=== PATIENT | female | born 1960 | race Caucasian/White ===

== ENCOUNTER → 2016-08-01 10:00 | Outpatient (CLI) | payer MEDICAID | END | disposition home or self-care (01) | LOC: D.MRI 10:00 | DX: M75.41 Impingement syndrome of right shoulder (principal) ==

== ENCOUNTER 2016-11-06 05:07 | Day surgery (SDC) | payer MEDICAID ==
[2016-11-03 15:06] LABS: BASOPHILS 0.6 % (0-2); EOSINOPHILS 2.5 % (0-7); HEMATOCRIT 42.1 % (36.0-48.0); HEMOGLOBIN 13.3 g/dL (12-16); IMMATURE GRANULOCYTES 0.1 % (0-5); LYMPHOCYTES 47.9 % (15-50); MCH 28.5 pg (26.0-34.0); MCHC 31.6 g/dL (31.0-37.0); MCV 90.3 fL (80.0-100.0); MEAN PLATELET VOLUME 9.9 fL (7.4-10.4); MONOCYTES 4.6 % (2-11); NEUTROPHILS 44.3 % (40-80); PLATELET COUNT 261 10x3/uL (130-400); RBC 4.66 10x6/uL (4.00-5.40); RDW 14.1 % (11.5-14.5); WBC 7.2 10x3/uL (4.8-10.8)
[2016-11-03 15:25] LABS: CALC OSMOLALITY 283 mosm/kg (275-300); CALCIUM 9.3 mg/dL (8.5-10.1); CHLORIDE - SERUM 104 mmol/L (98-107); CREATININE - SERUM 0.8 mg/dL (0.6-1.3); GLUCOSE 222 mg/dL (74-106); POTASSIUM - SERUM 4.7 mmol/L (3.5-5.1); SODIUM 139 mmol/L (136-145); UREA NITROGEN 10 mg/dL (7-18); eGFR NON AFRICAN AMERICAN 78 mL/min (90-120)
[~2016-11-06] VITALS: Ht 162.6 cm; Wt 117.5 kg
--- NOTE | ~2016-11-06 | OP ---
PATIENT NAME: MUSA CHARLES MEDICAL RECORD: [id number] :56 [facility] ADMISSION DATE: SURGEON: EFRAÍN ROSS MD DATE OF OPERATION: 11/06/2016 DATE OF OPERATION: 11/06/2016 PREOPERATIVE DIAGNOSES: 1. Rotator cuff tear of the right shoulder. 2. Impingement syndrome of the right shoulder. 3. Acromioclavicular arthritis of the right shoulder. POSTOPERATIVE DIAGNOSES: 1. Rotator cuff tear of the right shoulder. 2. Impingement syndrome of the right shoulder. 3. Acromioclavicular arthritis of the right shoulder. 4. Severe biceps tendon tearing. PROCEDURES: 1. Arthroscopic rotator cuff repair. 2. Arthroscopic biceps tenotomy. 3. Arthroscopic subacromial decompression, acromioplasty and bursectomy. 4. Arthroscopic distal clavicle excision. SURGEON: Cody Peacock MD. ANESTHESIA: General. INTRAOPERATIVE COMPLICATIONS: None. SUMMARY OF PATHOLOGIC FINDINGS: Consistent with the preoperative diagnoses, the patient had a full thickness rotator cuff tearing and impingement, acromioclavicular arthritis as well as the biceps tendon tearing noted above. OPERATIVE SUMMARY IN DETAIL: After obtaining the appropriate preoperative orthopedic surgery consent as well as anesthetic consultation, evaluation and clearance, the patient was brought to the operating room and placed on the operating table in supine position. After general laryngeal mask airway was administered, the patient was placed in left lateral decubitus position. All pressure points were well padded to include down leg peroneal pad as well as axillary roll. The patient was held firmly to the vacuum pack suction system. Right upper extremity and shoulder were then prepped and draped in routine sterile fashion. The arm was held in the Ar[employer] traction boom at 30 degrees of forward flexion, 30 degrees of abduction with 10 pounds of traction laterally. Arthroscopy was established in the glenohumeral joint from a posterior portal. Anterior portal was established in the anterior safe interval. Diagnostic arthroscopy revealed the above findings. A transarthroscopic rotator cuff portal was created. The [place] tissue ablation system was used to complete biceps tenotomy, generalized labral debridement was performed. Attention was then turned to the subacromial space. While in the subacromial space, the undersurface of the acromion was denuded of all soft tissue elements. A 5-0 barrel bur was used to perform acromioplasty to perform acromioplasty at the level of acromioclavicular joint and then through a separate arthroscopic anterior portal, distal clavicle was excised for 1 cm under direct fluoroscopic visualization, lateral cortical debridement was followed by an inverted #2 OPERATIVE REPORT [id number] MUSA CHARLES FiberTape passed through the rotator cuff and anchored laterally with a 5.5 SwiveLock from [employer]. Having completed this, arthroscopy portals were closed in routine interrupted fashion using 4-0 Prolene. Sterile dressings were applied. The patient was awakened, taken to recovery in stable condition. All final needle and sponge counts were correct. TRANSINT:[id number] Voice Confirmation ID: [id number] DOCUMENT ID: [id number] CODY COLON, EFRAÍN PEACOCK CC: [id number] DICTATION DATE: 11/06/16908 DAIRY LABORATORY TECHNICIAN: 11/06/16 1259 [facility] 11/06/16 [facility] [address] [place] [address]
[~2016-11-06 05:07] MED LIST: CYCLOBENZAPRINE10 MG PO; GLUCOPHAGE1000 MG PO; GLUCOTROL 5 MG T5 MG PO; HYDROCODONE-APA1 TAB PO; KLONOPIN0.5 MG PO; LEVOTHYROXINE100 MCG PO; OMEPRAZOLE20 M1 PO; PEPCID AC20 MG PO
[2016-11-06] MEDS ORDERED: PROZAC10 MG PO (06:15)
[2016-11-06] MEDS ORDERED: LISINOPRIL10 MG (06:16)
[2016-11-06] MEDS ORDERED: PROBIOTIC1 EAC1 (06:17)
[2016-11-06 06:18] VITALS: BP 120/55; Ht 162.6 cm; Wt 117.5 kg
--- NOTE | 2016-11-06 06:42 | NUR ---
0642 CANNOT TAKE TYLENOL; STOMACH ISSUES
[2016-11-06] MEDS ORDERED: MEPERIDINE HCL50 MG PO (09:06)
== END 2016-11-06 12:15 | disposition home or self-care (01) ==
LOC: D.OPS 05:07 → D.PAN 07:30 → D.OPS 07:30
PROVIDERS: Anesthesiology
DX: M75.101 Unspecified rotator cuff tear or rupture of right shoulder, not specified as traumatic (principal); M75.41 Impingement syndrome of right shoulder; M19.011 Primary osteoarthritis, right shoulder; S46.211A Strain of muscle, fascia and tendon of other parts of biceps, right arm, initial encounter; X58.XXXA Exposure to other specified factors, initial encounter; F17.200 Nicotine dependence, unspecified, uncomplicated; I10 Essential (primary) hypertension; E11.9 Type 2 diabetes mellitus without complications; G47.30 Sleep apnea, unspecified; K44.9 Diaphragmatic hernia without obstruction or gangrene; K21.9 Gastro-esophageal reflux disease without esophagitis; E03.9 Hypothyroidism, unspecified; Z01.812 Encounter for preprocedural laboratory examination

== ENCOUNTER → 2017-01-26 14:40 | Outpatient (CLI) | payer MEDICAID ==
[2016-11-06 06:18] VITALS: BMI 44.5
[~2017-01-26 14:40] MED LIST changes: +LISINOPRIL10 MG; +MEPERIDINE HCL50 MG PO; +PROBIOTIC1 EAC1; +PROZAC10 MG PO
== END | disposition home or self-care (01) ==
LOC: D.RAD 14:40
DX: M25.511 Pain in right shoulder (principal)

== ENCOUNTER → 2017-07-20 15:44 | Outpatient (CLI) | payer MEDICAID ==
[2016-11-06 06:18] VITALS: BMI 44.5
== END | disposition home or self-care (01) ==
LOC: D.MAMMO 05-31 11:30
DX: Z12.31 Encounter for screening mammogram for malignant neoplasm of breast (principal)

== ENCOUNTER → 2018-06-14 09:03 | Outpatient (CLI) | payer MEDICAID ==
[2016-11-06 06:18] VITALS: BMI 44.5
--- NOTE | 2018-06-17 14:36 | ST ---
PATIENT:MUSA CHARLES MEDICAL RECORD: [id number] SEX: F LOCATION:[facility] ORDER #: ADMISSION DATE: 06/14/18 AGE OF PATIENT: 57 REFERRING PHYSICIAN: INTERPRETING PHYSICIAN: RYANN CM MD DATE OF SERVICE: 06/14/2018 Nuclear Stress Test INDICATION: Angina, hypertension, hyperlipidemia, and diabetes. PROCEDURE: The patient was exercised on standard pharmacologic Lexiscan protocol with 33 mCi of sestamibi injected at peak stress, 11 mCi were used previously for rest images. FINDINGS: Gated SPECT reveals preserved ejection fraction at 55% with good wall motion and thickening and brightening throughout all segments. SPECT imaging Cardiolite was used as myocardial fusion agent. There is homogeneous uptake throughout all segments at rest and stress with no evidence of inducible ischemia or previous infarction. OVERALL IMPRESSION: 1. This is a normal nuclear stress test with no evidence of inducible ischemia or previous infarction. 2. Gated SPECT reveals a preserved ejection fraction at 55%. In this patient with ongoing symptomatology, the current scan does not suggest the presence of hemodynamically significant coronary artery disease. Evaluate noncardiac etiology of chest pain. TRANSINT:[id number] Voice Confirmation ID: [id number] DOCUMENT ID: [id number] RYANN CM MD at 1436 CC: [id number] DICTATION DATE: 06/15/18 1146 SUPERVISOR FUNCTIONAL TESTING: 06/16/18 0421 DEP CLI 06/14/18 [facility] [address] [place] [address]
== END | disposition home or self-care (01) ==
LOC: D.HCCARDIO 09:00
DX: I20.9 Angina pectoris, unspecified (principal)

== ENCOUNTER → 2018-06-27 10:55 | Outpatient (CLI) | payer MEDICAID ==
[2016-11-06 06:18] VITALS: BMI 44.5
== END | disposition home or self-care (01) ==
LOC: D.CT 10:55
DX: R91.1 Solitary pulmonary nodule (principal)

== ENCOUNTER 2018-12-16 07:15 | Day surgery (SDC) | payer MEDICAID ==
[~2018-12-16] VITALS: Ht 162.6 cm; Wt 116.8 kg
[2018-12-16 07:31] LABS: HEMOGLOBIN 13.4 g/dL (12-16); MCH 28.2 pg (26.0-34.0); MCHC 32.7 g/dL (31.0-37.0); MCV 86.1 fL (80.0-100.0); MEAN PLATELET VOLUME 9.5 fL (7.4-10.4); RBC 4.76 10x6/uL (4.00-5.40); RDW 15.1 % (11.5-14.5); WBC 11.7 10x3/uL (4.8-10.8)
[2018-12-16 07:38] LABS: CALC OSMOLALITY 280 mosm/kg (275-300); CALCIUM 9.5 mg/dL (8.5-10.1); CARBON DIOXIDE 30.6 mmol/L (21.0-32.0); CHLORIDE - SERUM 103 mmol/L (98-107); CREATININE - SERUM 0.8 mg/dL (0.6-1.3); POTASSIUM - SERUM 4.4 mmol/L (3.5-5.1); SODIUM 139 mmol/L (136-145); UREA NITROGEN 13 mg/dL (7-18); eGFR NON AFRICAN AMERICAN 77 mL/min (90-120)
[2018-12-16 07:39] LABS: GLUCOSE 151 mg/dL (74-106)
[2018-12-16 08:03] VITALS: BP 142/56; Ht 162.6 cm; Wt 116.8 kg
--- NOTE | 2018-12-16 10:45 | NUR ---
DC INSTRUCTIONS GIVEN TO PT/FAMILY. STATE UNDERSTANDING. DC'D IV CATH FULLY INTACT.
--- NOTE | 2018-12-16 10:52 | NUR ---
PT LEFT UNIT VIA WC AT 1052
--- NOTE | 2018-12-16 16:35 | OP ---
PATIENT NAME: MUSA CHARLES MEDICAL RECORD: [id number] :56 LOCATION:[facility] ADMISSION DATE: SURGEON: PAULA MORENO DO DATE OF OPERATION: 12/16/2018 PROCEDURE: EGD with biopsies. 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 SCOPE: Olympus video gastroscope. MEDICATIONS: Propofol 250 mg IV per Anesthesia. ESTIMATED BLOOD LOSS: Minimal. COMPLICATIONS: None. FINDINGS: Informed consent was given. The patient was made comfortable with the above medication. After reaching an adequate level of sedation by slow IV push, the patient was placed on her left side. The endoscope was advanced under direct visualization through the mouth to the second portion of the duodenum. The entire esophagus appeared normal. Cold forcep biopsies were taken from the midesophagus to submit for histopathology. At the GE junction, there were mild changes consistent with [place] class A reflux-induced esophagitis. There was no obvious Keller's seen. Two biopsies were taken with cold forceps from the GE junction to submit for histology. The endoscope was advanced beyond the GE junction into the stomach and retroflexed to view the cardia and fundus, which appeared normal. The body of the stomach as well as the antrum and prepyloric regions also appeared normal. The endoscope was advanced beyond the pylorus and the duodenum which appeared normal down to the second portion. Cold forcep biopsies were taken from both the antrum and within the small intestine to submit for histopathology. The endoscope was withdrawn from the patient. The patient tolerated the procedure well. There were no complications. IMPRESSION: 1. LA class A reflux-induced esophagitis. 2. Otherwise, normal upper endoscopy. PLAN AND RECOMMENDATIONS: 1. Discharge home when recovery parameters are met. 2. Follow up biopsy specimen results. 3. GERD diet and reflux precautions. 4. Continue current medications, which include omeprazole 20 mg daily. 5. We will order a right upper quadrant ultrasound regarding the right upper quadrant pain that is worsened with eating. 6. Consider PIPIDA scan if ultrasound is normal. 7. Consider gastric emptying scan if above workup is all normal. 8. Follow up in GI clinic in 1 month. TRANSINT:[id number] Voice Confirmation ID: [id number] DOCUMENT ID: [id number] OPERATIVE REPORT [id number] MUSA CHARLES PAULA MORENO DO at 1635 CC: [id number] DICTATION DATE: 12/16/18 1010 SLOT AMBASSADOR: 12/16/[address] [facility] 12/16/18 [id number] [place] [address]
== END 2018-12-16 10:52 | disposition home or self-care (01) ==
LOC: D.OPS 07:15
PROVIDERS: Anesthesiology; ATTEND Internal Medicine Gastroenterology
DX: K21.0 Gastro-esophageal reflux disease with esophagitis (principal); R13.10 Dysphagia, unspecified; Z01.812 Encounter for preprocedural laboratory examination

== ENCOUNTER → 2018-12-25 06:37 | Outpatient (CLI) | payer MEDICAID ==
[2018-12-16 08:03] VITALS: BMI 44.2
== END | disposition home or self-care (01) ==
LOC: D.US 06:37
PROVIDERS: ATTEND Internal Medicine Gastroenterology
DX: R10.11 Right upper quadrant pain (principal)

== ENCOUNTER → 2019-01-02 09:02 | Outpatient (CLI) | payer MEDICAID ==
[2018-12-16 08:03] VITALS: BMI 44.2
== END | disposition home or self-care (01) ==
LOC: D.NM 09:02
PROVIDERS: ATTEND Internal Medicine Gastroenterology
DX: R10.11 Right upper quadrant pain (principal)

== ENCOUNTER 2019-02-12 06:05 | Day surgery (SDC) | payer MEDICAID ==
[2019-02-11 10:36] LABS: CALC OSMOLALITY 277 mosm/kg (275-300); CALCIUM 9.5 mg/dL (8.5-10.1); CARBON DIOXIDE 30.5 mmol/L (21.0-32.0); CHLORIDE - SERUM 103 mmol/L (98-107); CREATININE - SERUM 0.8 mg/dL (0.6-1.3); GLUCOSE 128 mg/dL (74-106); POTASSIUM - SERUM 5.2 mmol/L (3.5-5.1); SODIUM 139 mmol/L (136-145); UREA NITROGEN 8 mg/dL (7-18); eGFR NON AFRICAN AMERICAN 77 mL/min (90-120)
[2019-02-11 11:14] LABS: HEMATOCRIT 39.9 % (36.0-48.0); HEMOGLOBIN 13.1 g/dL (12-16); MCH 28.4 pg (26.0-34.0); MCHC 32.8 g/dL (31.0-37.0); MCV 86.6 fL (80.0-100.0); MEAN PLATELET VOLUME 9.9 fL (7.4-10.4); RBC 4.61 10x6/uL (4.00-5.40); RDW 14.6 % (11.5-14.5)
[~2019-02-12] VITALS: Ht 162.6 cm; Wt 113.4 kg
[~2019-02-12 06:05] MED LIST changes: +CLARITIN-D PO; -LISINOPRIL10 MG; +LISINOPRIL10 MG PO
[2019-02-12 06:21] VITALS: BP 121/49; Ht 162.6 cm; Wt 113.4 kg
--- NOTE | 2019-02-12 08:38 | NUR ---
PATIENT HAS TWO RINGS THAT SHE REMOVED BEFORE THE PROCEDURE. Eileen WALKER RN KEPT THE RINGS DURING PROCEDURE DUE TO NO FAMILY BEING AT THE HOSPITAL AT THE TIME OF SURGERY. RINGS WILL FOLLOW PATIENT TO PACU.
[2019-02-12] MEDS ORDERED: HYDROCODON-ACE1 EAC7 PO (08:58)
--- NOTE | 2019-02-12 10:21 | NUR ---
1005 ICE PACK PROVIDED. SPOUSE AT SIDE. TIME FRAME AND CRITERIA FOR RELEASE GIVEN.
== END 2019-02-12 12:00 | disposition home or self-care (01) ==
LOC: D.OPS 06:05 → D.PAN 08:00 → D.OPS 08:00
PROVIDERS: Anesthesiology; ATTEND Surgery
DX: K80.10 Calculus of gallbladder with chronic cholecystitis without obstruction (principal); Z01.812 Encounter for preprocedural laboratory examination

== ENCOUNTER → 2020-03-18 11:19 | Outpatient (CLI) | payer MEDICAID ==
[2019-02-12 06:21] VITALS: BMI 43.0
[~2020-03-18 11:19] MED LIST changes: +HYDROCODON-ACE1 EAC7 PO
== END | disposition home or self-care (01) ==
LOC: D.MRI 11:19
PROVIDERS: ATTEND Orthopaedic Surgery
DX: M25.562 Pain in left knee (principal)

== ENCOUNTER 2020-08-27 14:15 | Outpatient (CLI) | payer BC ==
[2019-02-12 06:21] VITALS: BMI 43.0
== END 2020-08-27 23:59 | disposition home or self-care (01) ==
LOC: D.MAMMO 14:15
PROVIDERS: ATTEND Family Medicine
DX: Z12.31 Encounter for screening mammogram for malignant neoplasm of breast (principal)

== ENCOUNTER 2020-11-22 07:43 | Day surgery (SDC) | payer BC ==
[~2020-11-22] VITALS: Ht 162.6 cm; Wt 110.5 kg
--- NOTE | ~2020-11-22 | OP ---
PATIENT NAME: MUSA CHARLES MEDICAL RECORD: [id number] :56 LOCATION:[facility] ADMISSION DATE: SURGEON: PAULA MORENO DO DATE OF OPERATION: 11/22/2020 PROCEDURE: Colonoscopy with polypectomy. INDICATION FOR PROCEDURE: Family history of colon cancer in the patient's father, history of colon polyps, hematochezia. SCOPE: Olympus video pediatric colonoscope. MEDICATIONS: Propofol 1400 mg IV per anesthesia. WITHDRAWAL TIME: Greater than 30 minutes. ESTIMATED BLOOD LOSS: Minimal. COMPLICATIONS: None. FINDINGS: Informed consent was given. The patient was made comfortable with the above medication. After reaching an adequate level of sedation by slow IV push, the patient was placed on her left side. A digital rectal examination was performed and it was normal. The endoscope was then advanced under direct visualization through the rectum, to the cecum, confirmed by the presence of the appendiceal orifice and ileocecal valve. The endoscope was slowly withdrawn and the mucosa was carefully examined. The prep quality was fair. There were 3 polyps visualized on today's examination. The first was located in the transverse colon. It was a benign-appearing sessile polyp, which measured approximately 6 mm in diameter. It was removed using a hot snare. In the ascending colon, there were two separate benign-appearing polyps, which ranged in size from 3 mm in diameter to 6 mm in diameter. The larger of the polyps was removed using a hot snare. The smaller polyp was removed using a hot forceps. There was evidence of mild diverticulosis involving the sigmoid colon. Retroflexion was performed in the rectum with visualization of grade I internal hemorrhoids without bleeding. The endoscope was withdrawn from the patient. The patient tolerated the procedure well and there were no complications. IMPRESSIONS: 1. Three polyps as described above, removed using a combination of hot snare and hot forceps. 2. Mild diverticulosis of the sigmoid colon. 3. Grade I internal hemorrhoids without bleeding. PLAN AND RECOMMENDATIONS: 1. Discharge home when recovery parameters are met. 2. Follow up biopsy specimen results. 3. High fiber diet. 4. Continue current medications. 5. Recall colonoscopy in 3 years. TRANSINT:[id number] Voice Confirmation ID: [id number] DOCUMENT ID: [id number] OPERATIVE REPORT [id number] MUSA CHARLES PAULA MORENO DO CC: [id number] DICTATION DATE: 11/22/20 1045 FLIGHT OPERATIONS MANAGER: 11/22/201914 [facility] 11/22/20 [place] [id number] [place] [id number]
[2020-11-22 08:06] LABS: BASOPHILS 1.2 % (0-2); EOSINOPHILS 3.3 % (0-7); HEMATOCRIT 41.4 % (36.0-48.0); HEMOGLOBIN 13.5 g/dL (12-16); LYMPHOCYTES 41.5 % (15-50); MCH 28.3 pg (26.0-34.0); MCHC 32.5 g/dL (31.0-37.0); MEAN PLATELET VOLUME 7.8 fL (7.4-10.4); MONOCYTES 6.4 % (2-11); NEUTROPHILS 47.6 % (40-80); PLATELET COUNT 269 10x3/uL (130-400); RBC 4.76 10x6/uL (4.00-5.40); RDW 14.5 % (11.5-14.5); WBC 7.5 10x3/uL (4.8-10.8)
[2020-11-22 08:19] LABS: CALC OSMOLALITY 279 mosm/kg (275-300); CALCIUM 9.1 mg/dL (8.5-10.1); CARBON DIOXIDE 24.6 mmol/L (21.0-32.0); CHLORIDE - SERUM 108 mmol/L (98-107); CREATININE - SERUM 0.8 mg/dL (0.6-1.3); GLUCOSE 139 mg/dL (74-106); POTASSIUM - SERUM 4.2 mmol/L (3.5-5.1); SODIUM 140 mmol/L (136-145); UREA NITROGEN 10 mg/dL (7-18); eGFR NON AFRICAN AMERICAN 77 mL/min (90-120)
[2020-11-22 08:23] LABS: INR 1.2 (0.85-1.17); PROTIME 14.1 SECONDS (11.6-15.0)
[2020-11-22 09:02] VITALS: Ht 162.6 cm; Wt 110.5 kg
--- NOTE | 2020-11-22 11:13 | NUR ---
DC TEACHING COMPLETE. VERBALIZED UNDERSTANDING 1130 PIV DC'D, CATHETER INTACT. PT DRESSING 1154 PT DC'D VIA WC ACCOMPANIED BY THIS NURSE TO POV WITH DRIVING. PT/ HAVE ALL BELONGINGS AND DC PACKET.
== END 2020-11-22 11:54 | disposition home or self-care (01) ==
LOC: D.OPS 07:43
PROVIDERS: Anesthesiology; ATTEND Internal Medicine Gastroenterology
DX: Z86.010 Personal history of colon polyps (principal); Z80.0 Family history of malignant neoplasm of digestive organs; K92.1 Melena; K63.5 Polyp of colon; K57.30 Diverticulosis of large intestine without perforation or abscess without bleeding; K64.0 First degree hemorrhoids; K21.9 Gastro-esophageal reflux disease without esophagitis; Z12.11 Encounter for screening for malignant neoplasm of colon; K76.0 Fatty (change of) liver, not elsewhere classified